=== PATIENT | female | born 1945 | race Caucasian/White ===

== ENCOUNTER → 2017-06-02 | Outpatient (CLI) | payer MEDICARE, BC ==
--- NOTE | 2017-06-02 16:07 | RADRPT ---
PROCEDURE: Left knee radiographs. CLINICAL INDICATION: Left knee pain. TECHNIQUE: Four views. Weight bearing. Frontal, lateral, oblique, and patellar view. COMPARISON: No prior studies are available for comparison. FINDINGS: There is no fracture or dislocation. The soft tissues are normal. The articular surfaces are intact. There are small osteophytes arising from all 3 joint are very There is no lytic or blastic lesion. There is no radiopaque foreign body. IMPRESSION: 1. Mild degenerate change. 2. Otherwise unremarkable images of the left knee. RPTAT: QQ .Louie Camacho MD, MD Date Time Electronically viewed and signed by .Louie Camacho MD, on 06/02/2017 16:06 .R/
--- NOTE | 2017-06-02 16:09 | RADRPT ---
PROCEDURE: XR Right hip and pelvis. CLINICAL INDICATION: Right hip pain and pelvic pain. TECHNIQUE: 3 views. Frontal pelvis. Frontal and lateral right hip. COMPARISON: None. FINDINGS: There is no fracture or dislocation. The soft tissues are normal. There are degenerative changes of both hips with osteophytes noted. There is no lytic or blastic lesion. There are degenerative changes of the lower lumbar spine. IMPRESSION: 1. Mild degenerative changes of both hips. 2. Degenerative changes of the lower lumbar spine. RPTAT: QQ .Louie Camacho MD, MD Date Time Electronically viewed and signed by .Louie Camacho MD, MD on 06/02/2017 16:09 .R/
== END | disposition home or self-care (01) ==
LOC: HKI 10:54
PROVIDERS: ATTEND Orthopaedic Surgery
DX: M25.552 Pain in left hip (principal); M25.562 Pain in left knee; I10 Essential (primary) hypertension; E11.9 Type 2 diabetes mellitus without complications; E78.00 Pure hypercholesterolemia, unspecified; E03.9 Hypothyroidism, unspecified; Z90.710 Acquired absence of both cervix and uterus; Z79.4 Long term (current) use of insulin
CPT/HCPCS: 20610; 73502; 73564; G0463; J1030